=== PATIENT | male | born 1965 | race Caucasian/White ===

== ENCOUNTER 2018-02-08 13:56 | Outpatient (CLI) | payer OTHER ==
--- NOTE | 2018-02-22 13:11 | OP Clinic Progress Note ---
SUBJECTIVE: Espinoza Mendez is a 52-year-old male who presented today to the clinic for calluses on bilateral great toes. The patient has had them for quite some time now but states that they are not really painful for him. He also admits to a small lump underneath his right foot underneath the skin but states that it is not painful for him either. He does not admit to any fevers, chills, nausea, vomiting, shortness of breath or chest pain at this time. OBJECTIVE: VITAL SIGNS: T: 99.1 degrees Fahrenheit, BP: 133/90, heart rate 86, R: 18, pulse oximetry is 94% on room air. VASCULAR: DP and PT pulses are 2+ to the bilateral feet. Capillary refill time is less than 3 seconds to the toes bilaterally. No edema bilaterally. DERMATOLOGIC: There is mild hyperkeratosis noted at plantar medial IPJ of bilateral great toes. There are no other gross abnormalities noted regarding the skin. No skin discolorations or abnormalities. MUSCULOSKELETAL: There is a palpable, likely a fibrous mass, in the plantar right medial arch along what seems to be likely a band of the plantar fascia. This is not painful to the patient. The patient has limited 1st metatarsophalangeal joint range of motion with the forefoot loaded compared with the forefoot unloaded. NEUROLOGIC: Light touch sensation is intact to all toes of the right and left foot. ASSESSMENT: 1. Hyperkeratosis of bilateral great toes. 2. Functional hallux limitus, bilateral. PROCEDURE #1: Paring of calluses with a #15 blade bilaterally without incident. The patient tolerated the procedure well. PLAN: We discussed the importance of appropriate inserts to offload the 1st metatarsal head to help the biomechanics and allow more range of motion of the 1st MPJ in order to slow down the progression of calluses in that area. The patient was invited to call the office and see if he can come in some time in early February and do a non-official visit to warehouse picker inserts with a 1st metatarsal head cut out. They understand these inserts are not long lasting but are for the purpose of seeing if it helps. We can then look into a more definitive long-term option for inserts if they do help. cc: Dr. Janet PENA
== END 2018-02-08 13:58 ==
LOC: POD 13:56
PROVIDERS: ATTEND Podiatrist Foot & Ankle Surgery
DX: L84 Corns and callosities (principal)
CPT/HCPCS: 11056